=== PATIENT | male | born 1990 | race Two or more races ===

== ENCOUNTER 2019-02-10 01:30 | Emergency (ER) | payer SELFPAY ==
[~2019-02-10] VITALS: Ht 190.5 cm; Wt 81.6 kg
[2019-02-10 01:45] VITALS: BP 133/71
--- NOTE | 2019-02-10 01:50 | NUR ---
PT BIBSELF C/C "SCIATIC PAIN X7 DAYS, GETTING WORSE LAST 2 DAYS" -N/V -DIZZY -ACUTE DISTRESS. PT AMBULATORY. NAD NOTED. RESP EVEN AND UNLABORED. PT IN BED 9. WILL CONTINUE TO MONITOR.
--- NOTE | 2019-02-10 02:05 | NUR ---
Patient eloped from facility. ER MD notified.
[2019-02-10] MEDS ORDERED: HYDROCODONE/APAP 5/325MG 1 EACH TABLET ONE (02:11)
[2019-02-10] MEDS ORDERED: HYDROCODONE/APAP 5/325MG 1 EACH TABLET PO ONE (02:30)
== END 2019-02-10 02:48 | disposition left against medical advice (07) ==
LOC: ER 01:32
DX: M54.42 Lumbago with sciatica, left side (principal)
CPT/HCPCS: 99281; A4606; Z7502